=== PATIENT | female | born 1990 | race Caucasian/White ===

== ENCOUNTER 2019-02-22 08:42 | Inpatient (IN) | payer OTHER ==
[~2019-02-22] VITALS: Ht 160 cm; Wt 84.0 kg
--- NOTE | 2019-02-22 08:19 | PREOPHP ---
DATE OF ADMISSION: 03/01/2019 HISTORY OF PRESENT ILLNESS: This is a 27-year-old lady, 4, para 3 with 3 C-sections. Her ED C 03/01/2019 at 39 weeks , admitted to labor and delivery area for repeat . She had care at Dr. Sanchez's office, the [facility] and the care was uneventful. Th e position of the placenta is posterior and no placenta previa. PAST PERSONAL HISTORY: No history of diabetes, TB, asthma. ALLERGIES: NO ALLERGIES. SOCIAL HISTORY: Patient does not smoke. She does not drink. MEDICATIONS: She does not take any drugs except her iron and vitamins. GYNECOLOGIC HISTORY: She had menarche at the age of 14, every 28 days interval, 3 to 4 days duration , and moderate in amount. FAMILY HISTORY: Noncontributory. OBSTETRICAL HISTORY: She is 4, para 3. Her first delivery was in 2012 by . The one 2017 by . REVIEW OF SYSTEMS: CARDIOVASCULAR: No chest pains. RESPIRATORY: No cough. GASTROINTESTINAL: No diarrhea, no vomiting. GENITOURINARY: No dysuria. PHYSICAL EXAMINATION: GENERAL: Reveals a conscious, coherent lady and in no acute distress. VITAL SIGNS: Her blood pressure 120/80, pulse rate 80 per minute, respirations 16 per minute. BREASTS, HEART AND LUNGS: Within normal limits. ABDOMEN: Soft. No organomegaly. Fundic height 38 cm. PELVIC: Exam deferred. EXTREMITIES: No pedal edema. ADMITTING DIAGNOSIS: A 39 weeks' intrauterine , with 3 previous sections. The pat ient was planned to have repeat . The procedures were explained to her by Dr. Sanchez and she u nderstood everything totally. She did not like to go for tubal ligation. Dictated By: DOC HUBER MD NS/NTS Conf#: [id number] DID#: [id number] CC: JAGJIT SANCHEZ MD;*EndCC*
[~2019-02-22 08:42] MED LIST: FERR27TA PO
[2019-02-22 09:27] VITALS: Ht 160 cm; Wt 84.0 kg
[2019-02-22 09:29] VITALS: BP 109/59
[2019-02-22] MEDS ORDERED: LACTATED RINGER'S 500 ML IV SCH (09:32)
[2019-02-22] MEDS ORDERED: CEFAZOLIN 2 GM/50 ML (PMX) 50 ML IVPB SCH (10:00)
[2019-02-22] MEDS ORDERED: OXYTOCIN 30 UNITS/LR 500 ML IV PRN ×2 (10:00→15:30)
[2019-02-22] MEDS ORDERED: CARBOPROST 250 MCG INJ IM PRN ×2 (10:00→15:30)
[2019-02-22] MEDS ORDERED: MISOPROSTOL 200 MCG TAB PR PRN ×2 (10:00→15:30)
[2019-02-22] MEDS ORDERED: METHYLERGONOVINE 0.2 MG INJ IM PRN ×2 (10:00→15:30)
[2019-02-22] MEDS: LACTATED RINGER'S 1,000 ML IV SCH ×2 (10:11→10:22)
--- NOTE | 2019-02-22 10:12 | PREAC ---
Date/Time of Note Date/Time of Note DATE: 02/22/19 TIME: 10:09 Anesthesia Eval and Record Evaluation Time Pre-Procedure Interview DATE: 02/22/19 TIME: 10:09 Age 28 Sex female NPO: 8 hrs Preoperative diagnosis with previous C/S Planned procedure Repeat C/S Past Medical History Past Medical History: None Surgery & Anesthesia Issues No known issue Meds Anticoagulation: No Beta Danita within 24 hr: No Reason Beta Danita not given: Pt. not on B-Danita Reported Medications Ferrous Sulfate (Iron) 1 Tab Tablet, 1 TAB PO DAILY 04/05/12 Current Medications Lactated Ringer's 1,000 ml @ 125 mls/hr Q8H IV ; Start 02/22/19 at 09:32 Lactated Ringer's 500 ml @ 125 mls/hr Q4H IV ; Start 02/22/19 at 09:32 Cefazolin Sodium/ Dextrose 50 ml @ 100 mls/hr ONCE IVPB ; Start 02/22/19 at 10:00 Oxytocin/Lactated Ringer's 500 ml @ 125 mls/hr POST IV ; Start 02/22/19 at 10:00 Oxytocin/Lactated Ringer's 500 ml @ 0 mls/hr ONCE PRN IV .VAGINAL BLEEDING; Start 02/22/19 at 10:00 Methylergonovine Maleate (Methergine) 0.2 mg ONCE PRN IM .VAGINAL BLEEDING; Start 02/22/19 at 10:00 Carboprost Tromethamine (Hemabate) 250 mcg ONCE PRN IM .VAGINAL BLEEDING; Start 02/22/19 at 10:00 Misoprostol (Cytotec) 1,000 mcg ONCE PRN [place] .VAGINAL BLEEDING; Start 02/22/19 at 10:00 Meds reviewed: Yes Allergies Coded Allergies: No Known Allergies (Verified Allergy, Unknown, 02/22/19) Allergies Reviewed: Yes Labs/Studies Labs Reviewed: Reviewed by anesthesiologist test: Positive Pre-procedure Exam Last vitals Vital Signs Date Temp Pulse Resp B/P (MAP) Pulse Ox O2 O2 Flow FiO2 Time Delivery Rate 02/22/19 98.1 109/59 Room Air 09:29 (76) Airway: Adequate mouth opening Mallampati: Mallampati II Teeth: Normal Lung: Normal Heart: Normal ASA Physical Status ASA physical status: 2 Emergency: None Planned Anesthetic Neuraxial: Spinal Planned Pain Management Sub-arachniod narcotics Pre-operative Attestations Prior to commencing anesthesia and surgery, the patient was re-evaluated, there was verification of: *The patient's identity *The results of appropriate recent lab work and preoperative vital signs *The above evaluation not changing prior to induction *Anesthetic plan, risk benefits, alternative and complications discussed with patient/family; questions answered; patient/family understands, accepts and wishes to proceed. FÉLIX VILLALOBOS MD Feb 22, 2019 10:12
[2019-02-22] MEDS ORDERED: OXYTOCIN 10 UNIT INJ ONE ×2 (10:45→10:46)
[2019-02-22] MEDS ORDERED: ONDANSETRON 4 MG INJ ONE (10:45)
[2019-02-22] MEDS ORDERED: OXYTOCIN 30 UNITS/LR 500 ML IV ONE (10:45)
[2019-02-22] MEDS ORDERED: EPHEDrine 25 MG/5 ML SYG ONE (10:45)
[2019-02-22] MEDS ORDERED: METOCLOPRAMIDE 10 MG INJ ONE (10:45)
[2019-02-22] MEDS ORDERED: morphine SULFATE/PF (10 MG/10 ML) INJ ONE (10:45)
[2019-02-22] MEDS ORDERED: PHENYLephrine (100 MCG/ML) 10ML SYG ONE (11:37)
[2019-02-22] MEDS: OXYTOCIN 30 UNITS/LR 500 ML IV SCH ×2 (12:22→13:54)
[2019-02-22] MEDS ORDERED: morphine 2 MG INJ IV PRN ×2 (12:30)
[2019-02-22] MEDS ORDERED: ONDANSETRON 4 MG INJ IV PRN (12:30)
[2019-02-22] MEDS ORDERED: EPHEDrine 25 MG/5 ML SYG IV PRN (12:30)
[2019-02-22] MEDS ORDERED: NALOXONE (0.4 MG/ML) INJ IV PRN (12:30)
[2019-02-22] MEDS ORDERED: morphine SULFATE/PF (10 MG/10 ML) INJ SPINAL ONE (12:30)
[2019-02-22] MEDS ORDERED: DIPHENHYDRAMINE 50 MG INJ IV PRN (12:30)
[2019-02-22] MEDS: KETOROLAC 30 MG INJ IV PRN (13:02)
--- NOTE | 2019-02-22 13:49 | OPR ---
DATE OF OPERATION: 02/22/2019 PREOPERATIVE DIAGNOSIS: A 39 weeks' intrauterine with 3 previous sections. POSTOPERATIVE DIAGNOSIS: A 39 weeks' intrauterine with 3 previous . OPERATION PERFORMED: Repeat low transverse section. SURGEON: Doc Huber MD. GROCERY PACKER: Dr. Frias ANESTHESIA: Spinal. ANESTHESIOLOGIST: Dr. Ryder. OPERATIVE TECHNIQUE: Under spinal anesthesia, the patient was prepped and draped in the usual fashio n for abdominal surgery. After checking for the effect of the anesthesia, Pfannenstiel incision, 12 cm skin incision was performed. The incision was carried from the skin up to the fascia. Upon openi ng the skin up to the fascia, small blood vessels were noted to be oozing and these were all cauteriz ed. Fascia was opened transversely followed by splitting the muscles vertical and the peritoneum millie tically. Upon opening the abdominal cavity, the bladder blade was put in place. No adhesions were n oted. An incision was performed on the lower uterine segment and the angela was carried sideways from the serosa up to the endometrium and carried sidewise with the aid of my 2 fingers. My left hand was inserted in the lower segment of the uterus and the bag of water was ruptured. Clear fluid was note d. Baby's head was delivered with good fundal pressure. The baby's airways was quickly suctioned wi th amniotic fluid and then the rest of the body of the baby was delivered without difficulty. Once a gain, the baby's airways was quickly suctioned with amniotic fluid. The cord was clamped after 30 se conds and the baby was handed to the nursery nurse and to the wireless field technician. The cord blood was o btained. Placenta was delivered manually and complete. The uterus was exteriorized. The uterus was cleansed with wet lap sponge to make sure that no membranes were left behind. After correct s ponge count, the uterus was closed in the usual fashion using #1 chromic for the first layer, continu ous locking suture was used followed by #1 chromic for the second layer, imbricating sutures were use d. Bleeders were checked and there was some oozing noted on the left angle of the incision. Two fig [id number] sutures were put in and the oozing was controlled. Both tubes and ovaries were inspecte d and they were healthy looking. There was a small hematoma 3 x 3 cm on the left lower broad ligamen t, 1 interrupted suture with 0 Vicryl was used and the hematoma was controlled. No bleeding was note d. The uterus was put back to the pelvic cavity. Once again, uterine incision was checked for any b leeders and there was no bleeding noted. After correct sponge count, needle count and instrument cou nt as confirmed by the electronic development technician and membership administrator, the abdomen was closed in the usual fashion using 0 Vicryl for the peritoneum, 0 Vicryl for the muscles. For the fascia, 0 Vicryl continuous stitch was used followed by few [id number] sutures. For the subcutaneous tissue, it was closed with 3-0 V icryl and the skin was closed with 3-0 Vicryl, subcuticular suture was used. The patient tolerated t he procedure well. Estimated blood loss about 600 mL. Vital signs were stable during and after the procedure. She delivered a healthy baby girl, 9 and 9, at 11:18 a.m., 02/22/2019. Weight 3530 grams, 19 inches long. Dictated By: DOC HUBER MD NS/NTS Conf#: [id number] DID#: [id number] CC: JAGJIT SANCHEZ MD;*EndCC*
[2019-02-22 15:10] VITALS: BP 103/48; PULSE 102; RESP 18
[2019-02-22] MEDS ORDERED: LACTATED RINGER'S 1,000 ML IV SCH (15:26)
[2019-02-22] MEDS ORDERED: OXYTOCIN 30 UNITS/LR 500 ML IV SCH (15:26)
[2019-02-22] MEDS ORDERED: LANOLIN HPA 1 PKT TOP PRN (15:30)
[2019-02-22] MEDS ORDERED: METHYLERGONOVINE 0.2 MG TAB PO PRN (15:30)
[2019-02-22 16:15] VITALS: BP 100/51; PULSE 63; RESP 16
[2019-02-22 20:00] VITALS: BP 124/62; PULSE 65; RESP 19
[2019-02-22] MEDS: SENNA/DOCUSATE NA (8.6MG/50MG) TAB PO SCH (21:00)
--- NOTE | 2019-02-22 21:06 | PAC ---
Date/Time of Note Date/Time of Note DATE: 02/22/19 TIME: 21:06 Post-Anesthesia Notes Post-Anesthesia Note Last documented vital signs Vital Signs Date Temp Pulse Resp B/P (MAP) Pulse Ox O2 O2 Flow FiO2 Time Delivery Rate 02/22/19 97.5 63 16 100/51 97 Room Air 16:15 (67) Activity: WNL Respiratory function: WNL Cardiovascular function: WNL Mental status: Baseline Pain reasonably controlled: Yes Hydration appropriate: Yes Nausea/Vomiting absent: Yes FÉLIX VILLALOBOS MD Feb 22, 2019 21:06
[2019-02-23] VITALS: BP 101/55; PULSE 63; RESP 19
[2019-02-23 04:00] VITALS: BP 106/56; PULSE 64; RESP 19
[2019-02-23 07:40] VITALS: BP 98/49; PULSE 74; RESP 18
[2019-02-23] MEDS: SENNA/DOCUSATE NA (8.6MG/50MG) TAB PO SCH ×2 (08:17→21:22)
[2019-02-23] MEDS: KETOROLAC 30 MG INJ IV PRN (08:18)
[2019-02-23] MEDS ORDERED: HYDROCODONE/APAP (5/325) TAB PO PRN ×2 (09:30)
--- NOTE | 2019-02-23 11:29 | OPPN ---
Date/Time of Note Date/Time of Note DATE: 02/23/19 TIME: 11:27 Anesthesia Follow up Anesthesia Follow up Last documented vital signs Vital Signs Date Temp Pulse Resp B/P (MAP) Pulse Ox O2 O2 Flow FiO2 Time Delivery Rate 02/23/19 98.2 74 18 98/49 (65) 98 Room Air 07:40 Respiratory function: WNL Cardiovascular function: WNL Comments Postoperative pain in good control with spinal duramorph. Vital signs stable. No other specific complaints. FÉLIX VILLALOBOS MD Feb 23, 2019 11:29
[2019-02-23 11:56] VITALS: BP 128/77; PULSE 69; RESP 20
[2019-02-23] MEDS: IBUPROFEN 800 MG TAB PO PRN ×2 (12:27→18:21)
[2019-02-23 15:54] VITALS: BP 105/78; PULSE 90; RESP 20
--- NOTE | 2019-02-23 16:18 | PN ---
Date/Time of Note Date/Time of Note DATE: 02/23/19 TIME: 14:38 Assessment/Plan VTE Prophylaxis Risk score (from Ns)>0 risk: 1 SCD applied (from Ns): Yes Pharmacological prophylaxis: NA/contraindicated Pharm contraindication: low risk/ambulating Lines/Catheters IV [facility]ter [facility]from [facility] Peripheral IV Assessment/Plan Assessment/Plan POSTCSECTION DAY 1 CHRONIC IRON DEFICIENCY ANEMIA ORDERED ADVANCE DIET TOLERATED CBC ON 3RD POSTOP DAY Result Diagram: 02/23/19 0728 02/23/19 0728 Results 24hrs Laboratory Tests Test 02/23/19 06:33 02/23/19 07:28 Lab Scanned Report REFERENCE LAB White Blood Count 13.4 #H Red Blood Count 3.42 L Hemoglobin 8.8 L Hematocrit 27.8 L Mean Corpuscular Volume 81.3 L Mean Corpuscular Hemoglobin 25.7 L Mean Corpuscular Hemoglobin Concent 31.7 L Red Cell Distribution Width 16.1 H Platelet Count 243 Mean Platelet Volume 10.5 H Immature Granulocytes % 0.900 H Neutrophils % 81.1 H Lymphocytes % 10.4 L Monocytes % 7.3 Eosinophils % 0.1 Basophils % 0.2 Nucleated Red Blood Cells % 0.0 Immature Granulocytes # 0.120 H Neutrophils # 10.9 H Lymphocytes # 1.4 Monocytes # 1.0 H Eosinophils # 0.0 Basophils # 0.0 Nucleated Red Blood Cells # 0.0 Sodium Level 136 Potassium Level 4.0 Chloride Level 106 Carbon Dioxide Level 25 Anion Gap 5 Blood Urea Nitrogen 7 Creatinine 0.48 Est Glomerular Filtrat Rate mL/min > 60 Glucose Level 93 Calcium Level 8.3 L Subjective 24 Hr Interval Summary Free Text/Dictation POST CSECTION DAY 1 COMPLAIN OF INCISIONAL PAINS GOOD URINE OUTPUT PASSING GAS PER RECTUM NO BOWEL MOVEMENT YET Exam/Review of Systems Exam Vitals Vital Signs Date Temp Pulse Resp B/P (MAP) Pulse Ox O2 O2 Flow FiO2 Time Delivery Rate 02/23/19 98.7 69 20 128/77 Room Air 11:56 (94) 02/23/19 98 07:40 Intake and Output 02/22/19 02/22/19 02/23/19 1515:00 23:00 07:00 IntakeIntake Total 1625 ml 375 ml 875 ml OutputOutput Total 905 ml 900 ml BalanceBalance 720 ml 375 ml -25 ml Exam VITAL SIGNS STABLE: YES AFEBRILE: YES BREAST NOT ENGORGED, NON-TENDER, NO APPRECIABLE MASS: YES LUNGS CLEAR, NO RALES, WHEEZES, RHONCHI: YES SINUS RHYTHM WITHOUT MURMUR: YES ABDOMEN: NON-TENDER FUNDUS: BELOW UMBILICUS BOWEL SOUNDS: PRESENT UTERUS: FIRM INCISION (CLEAN, DRY, AND INTACT): YES LOCHIA: LIGHT DEEP TENDON REFLEXES: 0 EXTREMITIES: NO CALF TENDERNESS EDEMA SCALE: NONE Results Results 24hrs Laboratory Tests Test 02/23/19 06:33 02/23/19 07:28 Lab Scanned Report REFERENCE LAB White Blood Count 13.4 #H Red Blood Count 3.42 L Hemoglobin 8.8 L Hematocrit 27.8 L Mean Corpuscular Volume 81.3 L Mean Corpuscular Hemoglobin 25.7 L Mean Corpuscular Hemoglobin Concent 31.7 L Red Cell Distribution Width 16.1 H Platelet Count 243 Mean Platelet Volume 10.5 H Immature Granulocytes % 0.900 H Neutrophils % 81.1 H Lymphocytes % 10.4 L Monocytes % 7.3 Eosinophils % 0.1 Basophils % 0.2 Nucleated Red Blood Cells % 0.0 Immature Granulocytes # 0.120 H Neutrophils # 10.9 H Lymphocytes # 1.4 Monocytes # 1.0 H Eosinophils # 0.0 Basophils # 0.0 Nucleated Red Blood Cells # 0.0 Sodium Level 136 Potassium Level 4.0 Chloride Level 106 Carbon Dioxide Level 25 Anion Gap 5 Blood Urea Nitrogen 7 Creatinine 0.48 Est Glomerular Filtrat Rate mL/min > 60 Glucose Level 93 Calcium Level 8.3 L Medications Medication Current Medications Methylergonovine Maleate (Methergine) 0.2 mg Q6H PRN PO .VAGINAL BLEEDING; Start 02/22/19 at 15:30 Simethicone (Mylicon) 160 mg Q8H PRN PO .GAS Last administered on 02/23/19at 11:41; Admin Dose 160 MG; Start 02/22/19 at 15:30 Senna/Docusate Sodium (Senokot-S) 1 tab BID PO Last administered on 02/23/19at 08:17; Admin Dose 1 TAB; Start 02/22/19 at 21:00 Lanolin (Lanolin Hpa) 1 applic BEDSIDE MEDICATION PRN TOP .NIPPLES Last administered on 02/23/19at 12:27; Admin Dose 1 APPLIC; Start 02/22/19 at 15:30 Diphtheria/ Tetanus/Acell Pertussis (Adacel) 0.5 ml ONCE ONCE IM* ; Start 02/25/19 at 09:00; Stop 02/25/19 at 09:01 Measles/Mumps/ Rubella Vaccine Live (Mmr Ii Vaccine) 0.5 ml ONCE ONCE SC* ; Start 02/25/19 at 09:00; Stop 02/25/19 at 09:01 Oxytocin/Lactated Ringer's 500 ml @ 0 mls/hr ONCE PRN IV .VAGINAL BLEEDING; Start 02/22/19 at 15:30 Methylergonovine Maleate (Methergine) 0.2 mg ONCE PRN IM .VAGINAL BLEEDING; Start 02/22/19 at 15:30 Carboprost Tromethamine (Hemabate) 250 mcg ONCE PRN IM .VAGINAL BLEEDING; Start 02/22/19 at 15:30 Misoprostol (Cytotec) 1,000 mcg ONCE PRN [place] .VAGINAL BLEEDING; Start 02/22/19 at 15:30 Ibuprofen (Motrin) 800 mg Q6H PRN PO MILD PAIN LEVEL 1-3 Last administered on 02/23/19at 12:27; Admin Dose 800 MG; Start 02/23/19 at 09:30 Acetaminophen/ Hydrocodone Bitart ([place] (5/325)) 1 tab Q4H PRN PO MODERATE PAIN LEVEL 4-6; Start 02/23/19 at 09:30 Acetaminophen/ Hydrocodone Bitart ([place] (5/325)) 2 tab Q4H PRN PO SEVERE PAIN LEVEL 7-10; Start 02/23/19 at 09:30 DOC HUBER MD Feb 23, 2019 14:49
[2019-02-23 20:10] VITALS: BP 115/58; PULSE 75; RESP 18
[2019-02-24] MEDS: IBUPROFEN 800 MG TAB PO PRN ×3 (03:35→21:11)
[2019-02-24 04:00] VITALS: BP 108/54; PULSE 74; RESP 18
[2019-02-24 08:05] VITALS: BP 104/54; PULSE 54; RESP 16
[2019-02-24] MEDS ORDERED: BISACODYL 10 MG SUPP PR ONE (09:30)
[2019-02-24] MEDS ORDERED: MAGNESIUM HYDROXIDE 30ML CUP PO ONE (09:30)
[2019-02-24] MEDS: SENNA/DOCUSATE NA (8.6MG/50MG) TAB PO SCH ×2 (09:32→21:11)
[2019-02-24 16:17] VITALS: BP 109/53; PULSE 65; RESP 18
--- NOTE | 2019-02-24 17:37 | PN ---
Date/Time of Note Date/Time of Note DATE: 02/24/19 TIME: 17:36 Assessment/Plan VTE Prophylaxis Risk score (from Nsg)>0 risk: 1 SCD applied (from Nsg): No SCD contraindicated: low risk/ambulating Pharmacological prophylaxis: NA/contraindicated Pharm contraindication: low risk/ambulating Lines/Catheters IV Catheter Type (from Nrsg): Peripheral IV Assessment/Plan Assessment/Plan POST CSECTION DAY 2 CHRONIC IRON DEFICIENCY ANEMIA HOME TOMORROW CBC TOMORROW COUNSELED INSTRUCTED PRESCRIPTION GIVEN FOR PAIN RETURN TO CLINIC IN 2 WEEKS CALL OFFICE IF THERE IS ANY PROBLEM OR CONCERN CONTINUE WITH VITAMINS OD AND FERROUS SULFATE 325MG PO TID DIET ADVISED Result Diagram: 02/23/1972702/23/19727 Subjective 24 Hr Interval Summary Free Text/Dictation POST CSECTION DAY 2 LITTLE BOWEL MOVEMENT GOOD URINE OUTPUT FEELS LESS INCISIONAL PAINS Exam/Review of Systems Exam Vitals Vital Signs Date Temp Pulse Resp B/P (MAP) Pulse Ox O2 O2 Flow FiO2 Time Delivery Rate 02/24/19 98.4 65 18 109/53 16:17 (71) 02/24/19 Room Air 08:05 02/23/19 98 07:40 Intake and Output 02/23/19 02/23/19 02/24/19 1515:00 23:00 07:00 IntakeIntake Total 720 ml OutputOutput Total 800 ml 1100 ml BalanceBalance -80 ml -1100 ml Exam VITAL SIGNS STABLE: YES AFEBRILE: YES BREAST NOT ENGORGED, NON-TENDER, NO APPRECIABLE MASS: YES LUNGS CLEAR, NO RALES, WHEEZES, RHONCHI: YES SINUS RHYTHM WITHOUT MURMUR: YES ABDOMEN: NON-TENDER FUNDUS: BELOW UMBILICUS BOWEL SOUNDS: PRESENT UTERUS: FIRM INCISION (CLEAN, DRY, AND INTACT): YES LOCHIA: LIGHT DEEP TENDON REFLEXES: 0 EXTREMITIES: NO CALF TENDERNESS EDEMA SCALE: NONE Medications Medication Current Medications Methylergonovine Maleate (Methergine) 0.2 mg Q6H PRN PO .VAGINAL BLEEDING; Start 02/22/19 at 15:30 Simethicone (Mylicon) 160 mg Q8H PRN PO .GAS Last administered on 02/23/19at 11:41; Admin Dose 160 MG; Start 02/22/19 at 15:30 Senna/Docusate Sodium (Senokot-S) 1 tab BID PO Last administered on 02/24/19at 09:32; Admin Dose 1 TAB; Start 02/22/19 at 21:00 Lanolin (Lanolin Hpa) 1 applic BEDSIDE MEDICATION PRN TOP .NIPPLES Last administered on 02/23/19at 12:27; Admin Dose 1 APPLIC; Start 02/22/19 at 15:30 Diphtheria/ Tetanus/Acell Pertussis (Adacel) 0.5 ml ONCE ONCE IM* ; Start 02/25/19 at 09:00; Stop 02/25/19 at 09:01 Measles/Mumps/ Rubella Vaccine Live (Mmr Ii Vaccine) 0.5 ml ONCE ONCE SC* ; Start 02/25/19 at 09:00; Stop 02/25/19 at 09:01 Oxytocin/Lactated Ringer's 500 ml @ 0 mls/hr ONCE PRN IV .VAGINAL BLEEDING; Start 02/22/19 at 15:30 Methylergonovine Maleate (Methergine) 0.2 mg ONCE PRN IM .VAGINAL BLEEDING; Start 02/22/19 at 15:30 Carboprost Tromethamine (Hemabate) 250 mcg ONCE PRN IM .VAGINAL BLEEDING; Start 02/22/19 at 15:30 Misoprostol (Cytotec) 1,000 mcg ONCE PRN [place] .VAGINAL BLEEDING; Start 02/22/19 at 15:30 Ibuprofen (Motrin) 800 mg Q6H PRN PO MILD PAIN LEVEL 1-3 Last administered on 02/24/19at 13:02; Admin Dose 800 MG; Start 02/23/19 at 09:30 Acetaminophen/ Hydrocodone Bitart ([place] (5/325)) 1 tab Q4H PRN PO MODERATE PAIN LEVEL 4-6; Start 02/23/19 at 09:30 Acetaminophen/ Hydrocodone Bitart ([place] (5/325)) 2 tab Q4H PRN PO SEVERE PAIN LEVEL 7-10; Start 02/23/19 at 09:30 DOC HUBER MD Feb 24, 2019 17:37
[2019-02-24 20:00] VITALS: BP 105/65; RESP 18
[2019-02-25 04:00] VITALS: BP 97/58; PULSE 73; RESP 17
[2019-02-25 07:30] VITALS: BP 113/59; PULSE 72; RESP 20
[2019-02-25] MEDS ORDERED: MEASLES,MUMPS,RUBELLA VACCINE INJ SC* ONE (09:00)
[2019-02-25] MEDS ORDERED: DIPHTH/TET/ACEL PERTUSS (ADULT) 0.5 ML VIAL IM* ONE (09:00)
[2019-02-25] MEDS: SENNA/DOCUSATE NA (8.6MG/50MG) TAB PO SCH (10:21)
[2019-02-25 15:16] VITALS: BP 105/60; PULSE 72; RESP 20
--- NOTE | 2019-02-26 16:04 | DELSUM ---
Delivery Summary A-C Datetime Report Generated by CPN: 02/26/2019 16:04 DELIVERY PERSONNEL Senior Devops Engineer: Orel, Shirley MATERNAL INFORMATION Delivery Anesthesia: Spinal Medications in Delivery: see anesthesia records Delivery QBL (ml): 600 Placenta Cultured: No Maternal Complications: None LABOR SUMMARY EDC: 03/01/2019 00:00 No. Babies in Womb: 1 Attempted: No Labor Anesthesia: None LABOR INFORMATION Reason for Induction: Not Applicable Group B Beta Strep: Negative Antibiotics # of Doses: ancef 2 gm Antibiotics Time of Last Dose: 02/22/2019 10:46 Steroids Given: None Reason Steroids Not Administered: Not Applicable MEMBRANES Membranes Rupture Method: Artificial Rupture of Membranes: 02/22/2019 11:17 Length of Rupture (hr): 0.02 Amniotic Fluid Color: Clear Amniotic Fluid Amount: Moderate Amniotic Fluid Odor: None STAGES OF LABOR Stage 3 hr: 0 Stage 3 min: 1 CSECTION DELIVERY Primary Indication: Repeat Elective Secondary Indication: N/A CSection Urgency: Elective CSection Incidence: Repeat Labor: N/A Elective: N/A CSection Incision: Lower Uterine Transverse BABY A INFORMATION Delivery Date/Time: 02/22/2019 11:18 Method of Delivery: Born in Route : No : N/A Forceps: N/A Vacuum Extraction: N/A Shoulder Dystocia : No SHOULDER DYSTOCIA BABY A Delivery Date/Time: 02/22/2019 11:18 PRESENTATION/POSITION BABY A Presentation: Cephalic Cephalic Presentation: Vertex Vertex Position: Left Occipital Anterior Breech Presentation: N/A PLACENTA INFORMATION BABY A Placenta Delivery Time : 02/22/2019 11:19 Placenta Method of Delivery: Manual Removal Placenta Status: Delivered SCORES BABY A Heart Rate 1 min: >100 bpm Resp Effort 1 min: Good Cry Reflex Irritability 1 min: Cough/Sneeze/Pulls Away Muscle Tone 1 min: Active Motion Color 1 min: Body Cascades, Extremit Blue Resuscitation Effort 1 min: Tactile Stimulation SCORE 1 MIN: 9 Heart Rate 5 min: >100 bpm Resp Effort 5 min: Good Cry Reflex Irritability 5 min: Cough/Sneeze/Pulls Away Muscle Tone 5 min: Active Motion Color 5 min: Body Cascades, Extremit Blue Resuscitation Effort 5 min: Tactile Stimulation SCORE 5 MIN: 9 INFORMATION BABY A Gestational Age at Delivery: 39.0 Gestational Status: Full Term- 39- 40.6 Weeks Outcome : Liveborn, with signs of life Infant Condition : Stable Infant Sex: Female IDENTIFICATION/MEDS BABY A ID Band Number: [id number] ID Band Location: Right Leg; Left Arm Sensor Applied: Yes Sensor Number: [id number] Sensor Location : Cord Clamp Vitamin K Given : Not Given Erythromycin Given: Not Given WEIGHT/LENGTH BABY A Birthweight (gm): 3530 Weight (lb): 7 Infant Weight (oz): 13 Length (in): 19.00 Infant Length (cm): 48.26 CORD INFORMATION BABY A No. Cord Vessels: 3 Nuchal Cord : N/A Cord Blood Taken: Yes Suction: Mouth; Nose ASSESSMENT BABY A Complications: None Physical Findings at Delivery: Within Normal Limits Infant Respirations: Appears Normal Fuel Cell Technician/ALS Called : No Care By: RUBY Dyson RN Transferred To: Remains with Mother
--- NOTE | 2019-03-02 06:30 | DS ---
DATE OF ADMISSION: 02/22/2019 DATE OF DISCHARGE: 02/25/2019 This is a 28-year-old lady, 4, para 3 with 3 C-sections, EDC 03/01/2019, at 39 weeks , admitted to labor and delivery area for repeat . HISTORY OF PRESENT ILLNESS: See dictated history and physical. PHYSICAL EXAMINATION: See dictated history and physical. ADMITTING DIAGNOSIS: Was 39 weeks' intrauterine , with 3 previous C-sections. HOSPITAL COURSE: The patient underwent a repeat low transverse section on 02/22/2019. She tolerated the procedure well. She did have good postoperative course. The diet was advanced from li quid to general diet. She had good bowel movement postoperatively. She had less pain on the third p ostoperative day. She was discharged home on the third postoperative day on a general diet and activ ity was restricted. She was counseled. She was instructed. She was discharged home in good and sta ble condition. The hematocrit on discharge was 29.5, hemoglobin 9.1. FINAL DIAGNOSES: Was 39 weeks' intrauterine , with 3 previous C-sections, delivered and chronic iron deficien cy anemia. Dictated By: DOC MCDONALD/NTS Conf#: [id number] DID#: [id number]
== END 2019-02-25 16:03 | disposition home or self-care (01) | DRG 788 ==
LOC: L-D 08:42 → PP1 15:12 → EDSTATUS 03-01 08:42
PROVIDERS: ADMIT Obstetrics & Gynecology; ATTEND Obstetrics & Gynecology
PROC: 3E033VJ Introduction of Other Hormone into Peripheral Vein, Percutaneous Approach (ICD-10-PCS; 2019-02-22)
PROC: 10D00Z1 Extraction of Products of Conception, Low, Open Approach (ICD-10-PCS; principal; 2019-02-22 10:30)
DX: O65.5 Obstructed labor due to abnormality of maternal pelvic organs (principal); O34.211 Maternal care for low transverse scar from previous cesarean delivery; Z3A.39 39 weeks gestation of pregnancy; Z37.0 Single live birth
CPT/HCPCS: 80048; 85025; 85610; 85730; 86592; 86850; 86900; 86901; 99464; J0690; J1885; J2274; J2370; J2405; J2590; J2765; J7120